=== PATIENT | male | born 1950 | race Caucasian/White ===

== ENCOUNTER → 2018-03-03 | Day surgery (SDC) | payer OTHER ==
--- NOTE | 2018-02-16 18:50 | History and Physical ---
History & Physical Date February 16, 2018. Chief Complaint Right knee pain History of Present Illness The patient is a 67 year old male with complaints of right knee pain for several months after a slipping injury and twisted knee. He has pain with weight bearing, twisting, standing. He takes Tylenol with minimal relief. Patient unable to take NSAIDs due to CKD. He has a pacemaker so was unable to have an MRI. A CT arthrogram was ordered however could not have done due to his kidney disease. Patient was failed conservative management, including physical therapy and cortisone injections. Patient's history and exam are consisted with a meniscal injury and the decision was make to proceed with a diagnostic arthroscopy with possible partial meniscectomy. Patient denies fever, chills, sweats, chest pain, sob, martino, leg swelling, n/v/d/c, numbness, tingling, dysuria , or other changes in urinary habits. Past Medical/Surgical History Past Medical History: history of OH, hypertension, high cholesterol, hypothyroidism, CAD, RA, CKD IV, pacemaker due to bradycardia Past Surgical History: Quadruple bypass, cardiac stent, pacemaker, umbilical hernia repair Social history: Patient denies alcohol use, drug use, and tobacco use. Patient lives in a 2 story home and is employed as a [employer]. Medications: Levothyroxine, atorvastatin, aspirin, Vitamin D3, Plavix, minocycline, and metoprolol. Allergies: NKDA Additional History Hepatic Disease: No Endocrine Disorder: Yes (hypothyroid) Kidney Disease: Yes (CKD IV) Hypertension: Yes Heart Disease: Yes Bleeding Tendencies: No Infectious Diseases: No Allergies Coded Allergies: No Known Allergies (Unverified , 02/16/18) Physical Examination Skin: warm/dry, no rash Eyes: normal inspection, EOMI, sclerae normal ENT: normal ENT inspection, pharynx normal Head: normocephalic, atraumatic Neck: supple, no adenopathy, trachea midline Respiratory/Chest: lungs clear, normal breath sounds, no respiratory distress Cardiovascular: regular rate, rhythm, no murmur Extremities: normal inspection, + pertinent finding Neurologic/Psych: no motor/sensory deficits, alert, oriented x 3 Addiitonal Comments: X-rays: Right knee [id number] changes with joint space narrowing medial compartment and patellofemoral joint. Diagnosis Right knee pain, possible MMT Plan of Treatment Treatment options were discussed with patient. Patient has failed conservative management and is unable to have advanced imaging. Risks, benefits, and alternatives to surgery were discussed with patient including, but not limited to infection, DVT, failure to relive symptoms, stiffness, need for revision surgery, damage to blood vessels, damage to nerves, PE, , risks of anesthesia and patient demonstrated understanding. Patient would like to proceed with right knee arthroscopy with possible partial medial meniscectomy. Surgery is scheduled for 03/03/18.
[2018-02-23 09:40] VITALS: BMI 28.0
--- NOTE | 2018-02-23 10:14 | PAT Medication Instructions ---
Service Date February 23, 2018. Current Home Medication List Aspirin (Aspirin Ec), 81 MG PO HS Atorvastatin (Lipitor), 40 MG PO HS Cholecalciferol (Vitamin D3), 1 TAB PO QAM Clopidogrel (Plavix), 75 MG PO QPM Levothyroxine Sodium (Levothyroxine Sodium), 1 TAB PO QAM Metoprolol Succ (Toprol Xl) (Toprol-Xl), 25 MG PO QPM Minocycline (Minocin), 100 MG PO QAM Medication Instructions For Your Scheduled Surgery - Instructions to be given by Cardiology: Clopidogrel (Plavix), 75 MG PO QPM - Hold the following medications the morning of surgery: Cholecalciferol (Vitamin D3), 1 TAB PO QAM - Take the following medications the morning of surgery with a sip of water OTHERWISE NOTHING TO EAT OR DRINK AFTER MIDNIGHT: Levothyroxine Sodium (Levothyroxine Sodium), 1 TAB PO QAM Minocycline (Minocin), 100 MG PO QAM - Take the following medications as scheduled the night before surgery: Metoprolol Succ (Toprol Xl) (Toprol-Xl), 25 MG PO QPM Aspirin (Aspirin Ec), 81 MG PO HS Atorvastatin (Lipitor), 40 MG PO HS If you have any questions please call us at [phone] or [phone] or [phone]
[2018-02-23 12:22] LABS: BASO % 0.7 %; BASO ABS # 0.03 K/uL (0-0.2); EOS % 2.6 %; EOS ABS # 0.11 K/uL (0-0.5); HEMATOCRIT 40.7 % (42-52); HEMOGLOBIN 13.6 g/dL (14.0-18.0); LYMPH % 30.1 %; LYMPH ABS # 1.28 K/uL (1.2-3.4); MEAN CELL VOLUME 91.7 fL (80-100); MEAN CORPUSCULAR HEMOGLOBIN 30.6 pg (25-34); MEAN CORPUSCULAR HGB CONC 33.4 g/dl (32-36); MEAN PLATELET VOLUME 9.5 fL (7.4-10.4); MONO % 11.1 %; MONO ABS # 0.47 K/uL (0.11-0.59); NEUT % 55.5 %; NEUT ABS # 2.36 K/uL (1.4-6.5); PLATELET COUNT 206 K/uL (130-400); RED CELL DISTRIBUTION WIDTH SD 43.6 fL (36.4-46.3); WHITE BLOOD COUNT 4.25 K/uL (4.8-10.8)
[2018-02-23 12:30] LABS: PTT PATIENT 25.5 SECONDS (21.0-31.0)
[2018-02-23 12:33] LABS: CALCIUM 8.9 mg/dl (8.5-10.1); CREATININE 2.8 mg/dl (0.60-1.40); POTASSIUM 5.1 mmol/L (3.5-5.1)
[~2018-03-03] VITALS: Ht 180.3 cm; Wt 93.6 kg
[~2018-03-03] MED LIST: ASPI81TA28 PO; ATOR-24 PO; ATROPINE SULFATE 0.1 MG/ML 5ML SYR IV PRN; BACITRACIN 50000 UNIT VIAL ONE; CEFAZOLIN 2000MG IV PUSH 15 ML IV SCH; CHOL1000 PO; CLOP1TAB15 PO; DEXAMETHASONE SOD INJ 4 MG/ML VIAL ONE; EpHEDrine SULFATE INJ 50 MG/ML AMP IV PRN; EpINEphrine HCL INJ 1 MG/ML 1ML SYRINGE ONE; FENTANYL CITRATE INJ 50 MCG/1 ML 2 ML VIAL IV PRN; FENTANYL CITRATE INJ 50 MCG/1 ML 2 ML VIAL ONE; HYDR-5688 PO; HYDROCODONE/ACETAMIN 5/325MG TAB PO PRN; LACTATED RINGER'S 1000ML 1,000 ML IV SCH; LEVO25TA5 PO; LIDOCAINE HCL 2% 2 ML VIAL (20MG/ML) ONE; LIDOCAINE/EPINEPHRINE 1% 20 ML VIAL ONE; METO25TA3 PO; MIDAZOLAM HCL 1 MG/ML 2ML VIAL ONE; MINO100C22 PO; ONDANSETRON INJ 2 MG/ML 2 ML VIAL IV PRN; ONDANSETRON INJ 2 MG/ML 2 ML VIAL ONE; ORTHO JOINT ANESTHETIC ONE; POVIDONE-IODINE OP SOLN 30 ML BTL ONE; PROPOFOL IV EMULSION 10 MG/ML 20 ML VIAL ONE; SODIUM CHLORIDE 0.9% 1000ML 1,000 ML IV SCH
[2018-03-03 05:31] VITALS: BP 148/87; PULSE 71; TEMP 36.6; O2SAT 100; Ht 180.3 cm; Wt 93.6 kg
--- NOTE | 2018-03-03 06:39 | History & Physical Bridge Note ---
H&P Re-Evaluation Bridge Note: I have examined the patient, reviewed the History & Physical and in the interval since the performance of the History & Physical I have noted the following changes of clinical significance: No changes noted
--- NOTE | 2018-03-03 07:24 | Discharge Instructions ---
Discharge Instructions Date of Service March 03, 2018. Visit Reason for Visit: Right Knee Medial Meniscus Tear Discharge Discharge Diagnosis / Problem: Right knee medial meniscal tear, chondromalacia Discharge Goals Goal(s): Decrease discomfort, Improve function Activity Recommendations Activity Limitations: per Instructions/Follow-up section Anesthesia . Post Anesthesia Instructions: If you have had General Anesthesia or IV Sedation: * Do not drive today. * Resume driving when surgeon permits. * Do not make important decisions or sign legal documents today. * Call surgeon for: 1. Temperature elevations greater than 101 degrees F. 2. Uncontrollable pain. 3. Excessive bleeding. 4. Persistent nausea and vomiting. 5. Medication intolerance (nausea, vomiting or rash). * For nausea and vomiting use only clear liquids such as: tea, soda, bouillon until nausea subsides, then gradually increase diet as tolerated. * If you have any concerns or questions, call your surgeon's office. If physician is unavailable and it is an emergency, call 911 or go to the nearest emergency room. . Instructions / Follow-Up Instructions / Follow-Up ACTIVITY RECOMMENDATIONS: * You may walk on the leg with or without crutches as comfort permits. * Bending of the knee should start at once. * Do not shower for 48 hours following surgery. SPECIAL CARE INSTRUCTIONS: * You may cleanse the skin adjacent to the small wounds with soap and water at the time of the first dressing change. * The application of an ice bag to the front and sides of the knee will decrease swelling and discomfort for the first 48 hours. * The small incisions may be sore and develop bruising. This bruising does not require any special care. SPECIAL PRECAUTIONS: * If you experience unusual pain unrelieved by prescriptions, temperature elevation (100 degrees F. or above) or progressive swelling or bleeding, you should contact our office at for further evaluation. * You may have been prescribed pain medication. If you experience nausea and/or fine skin rash, discontinue this medication and contact our office at for an alternate medication. DRESSING: * Dressing should be comfortable and absorb any leakage of fluid and/or blood. * The dressing may become moist or bloodstained. * Dressing may be removed 48 hours after surgery and bandaids placed over the small surgical incisions. If can be removed sooner if it becomes very soiled or loose. * Bandaids may be used over next several days as needed and can be discontinued when there is not further drainage from the wounds. FOLLOW UP VISIT: If appointment is not already scheduled: Please call [facility] to make a follow-up appointment 10-14 days after surgery with Dr. Honeycutt or his PA for 10-14 days post op at . Diet Recommendations Recommended Home Diet: resume previous diet Procedures Procedures Performed: Right knee arthroscopy with partial medial meniscectomy and chondroplasty patella and lateral tibal plateau. Pending Studies Studies pending at discharge: no Medical Emergencies . Who to Call and When: Medical Emergencies: If at any time you feel your situation is an emergency, please call 911 immediately. . Non-Emergent Contact Non-Emergency issues call your: Surgeon Call Non-Emergent contact if: temperature is above 101, your pain is not controlled, your pain is concerning you, wound has increased drainage, wound has increased redness, wound has increased pain . . "Provider Documentation" section prepared by Freddy Craig. . [place] Drug Monitoring Program Search Results: patient reviewed within database, no issues identified
--- NOTE | 2018-03-03 07:51 | [facility] Operative Report ---
Operative Report Operative Date March 03, 2018. Pre-Operative Diagnosis Right knee pain Post-Operative Diagnosis Right knee medial meniscus tear, chondromalacia lateral tibial plateau, chondromalacia patella Procedure(s) Performed Right knee arthroscopy with partial medial meniscectomy and chondroplasty patella and lateral tibal plateau. Surgeon Dr. Honeycutt [employer] Surgeon(s) none Estimated Blood Loss 2 cc Findings As above Specimens none per surgeon Drains None Anesthesia Type General Complication(s) none Disposition Recovery Room / PACU Indications The patient is a 67-year-old male long-standing pain in the right knee. He has failed conservative measures including injection, anti-inflammatories, physical therapy. He is unable to have an MRI performed and he is not able to have a CT scan with contrast performed. Failing these he wishes to proceed with diagnostic arthroscopy and possible partial medial meniscectomy. Description of Procedure Risks, benefits and alternatives to surgery including, but not limited to, infection, DVT, pain, stiffness, need for revision surgery, failure to relieve all symptoms, damage to blood vessels, damage to nerves, risk of the anesthesia were discussed with the patient and they wished to proceed. The patient was identified. Laterality was confirmed and marked. The patient received a preoperative antibiotic. They were transferred to the operating room and placed in supine position and induced into general endotracheal anesthesia per the anesthesia staff. A well-padded tourniquet was placed on the thigh and the limb was prepped and draped in the usual standard manner with ChloraPrep. The limb was exsanguinated and the tourniquet was inflated. I made a standard anterolateral viewing portal made through a stab incision and bluntly entered the suprapatellar pouch. Then under spinal needle localization I established an anteromedial portal. There was grade 2 cartilage of the patella. There was grade [0] cartilage of the trochlea. There was grade [0] cartilage of the medial femoral condyle. There was grade 1 cartilage of the medial tibial plateau. There was a complex tear of the posterior horn of the medial meniscus. This was debrided back to a stable base utilizing combination of the shaver as well as meniscal biter. The ACL and PCL were probed and were normal. The lateral meniscus was normal. There was grade [0] cartilage of the lateral femoral condyle. There was grade 2 cartilage of the lateral tibial plateau. The unstable chondral flaps were debrided back to stable base utilizing a shaver. All of the instrumentation was removed from the knee. The portal sites were closed with nylon. A sterile dressing was applied and the tourniquet was released. All needle and sponge counts were correct at the end of the procedure. The patient was transferred to the PACU in stable condition without apparent complication. I attest to the content of the Intraoperative Record and any orders documented therein. Any exceptions are noted below.
--- NOTE | 2018-03-03 08:33 | Anesthesiology Progress Note ---
Anesthesia Post Op Note Date & Time March 03, 2018 at 08:33 Vital Signs Pain Intensity: 0 Vital Signs Past 12 Hours Date Time Temp Pulse Resp B/P (MAP) Pulse Ox O2 Delivery O2 Flow Rate FiO2 03/03/18 08:25 70 16 125/74 100 Room Air 03/03/18 08:15 70 16 130/79 100 Nasal Cannula 10 03/03/18 08:05 70 16 130/80 100 Nasal Cannula 10 03/03/18 07:55 36.3 70 16 123/88 100 Nasal Cannula 10 03/03/18 05:31 36.6 71 16 148/87 (107) 100 Room Air Notes Mental Status: alert / awake / arousable, participated in evaluation Pt Amnestic to Procedure: Yes Nausea / Vomiting: adequately controlled Pain: adequately controlled Airway Patency, RR, SpO2: stable & adequate BP & HR: stable & adequate Hydration State: stable & adequate Anesthetic Complications: no major complications apparent
[2018-03-03 09:00] VITALS: BP 126/80; PULSE 70; TEMP 36.5; O2SAT 98
[2018-03-03 09:30] VITALS: BP 142/81; PULSE 72; TEMP 36.5; O2SAT 99
== END | disposition home or self-care (01) ==
LOC: C.ACU 04:50
PROVIDERS: ATTEND Orthopaedic Surgery
DX: S83.241A Other tear of medial meniscus, current injury, right knee, initial encounter (principal); X50.9XXA Other and unspecified overexertion or strenuous movements or postures, initial encounter; W01.0XXA Fall on same level from slipping, tripping and stumbling without subsequent striking against object, initial encounter; M22.41 Chondromalacia patellae, right knee; I10 Essential (primary) hypertension; E78.00 Pure hypercholesterolemia, unspecified; E03.9 Hypothyroidism, unspecified; I25.10 Atherosclerotic heart disease of native coronary artery without angina pectoris; M06.9 Rheumatoid arthritis, unspecified; N18.4 Chronic kidney disease, stage 4 (severe); F17.200 Nicotine dependence, unspecified, uncomplicated; I25.2 Old myocardial infarction; Z95.0 Presence of cardiac pacemaker; Z95.1 Presence of aortocoronary bypass graft; Z79.82 Long term (current) use of aspirin